=== PATIENT | female | born 1960 | race Caucasian/White ===

== ENCOUNTER 2018-11-28 15:26 | Emergency (ER) | payer OTHER ==
[~2018-11-28] VITALS: Ht 157.5 cm; Wt 54.4 kg
[~2018-11-28 15:26] MED LIST: CYMBALTA20 MG PO
[2018-11-28] MEDS ORDERED: SKELAXIN800 MG PO (18:23)
== END 2018-11-28 19:41 | disposition home or self-care (01) ==
LOC: ER 15:26
DX: M79.7 Fibromyalgia (principal); M25.552 Pain in left hip; M54.5 Low back pain

== ENCOUNTER 2019-10-08 12:20 | Emergency (ER) | payer OTHER ==
[~2019-10-08] VITALS: Ht 157.5 cm; Wt 51.7 kg
[~2019-10-08 12:20] MED LIST changes: +SKELAXIN800 MG PO
[2019-10-08] MEDS ORDERED: AMOX-CLAV 875-1 EACH PO (15:30)
== END 2019-10-08 15:51 | disposition home or self-care (01) ==
LOC: ER 12:20
DX: H66.93 Otitis media, unspecified, bilateral (principal); Z03.818 Encounter for observation for suspected exposure to other biological agents ruled out; R51 Headache; M54.2 Cervicalgia; F41.8 Other specified anxiety disorders

== ENCOUNTER 2024-08-13 17:52 | Emergency (ER) | payer OTHER ==
[~2024-08-13] VITALS: Ht 157.5 cm; Wt 49.9 kg
[~2024-08-13 17:52] MED LIST changes: +AMOX-CLAV 875-1 EACH PO
[2024-08-13] MEDS ORDERED: LORazepam 0.5 MG TABLET PO ONE (19:15)
[2024-08-13 19:23] LABS: HEMOGLOBIN 11.7 g/dL (12.0-15.00); MEAN CORPUSCULAR HEMOGLOBIN 30.3 pg (27.00-32.0); MEAN CORPUSCULAR HGB CONC 34.5 g/dl (32.0-36.0); PLATELET COUNT 293 K/uL (150-450); RED BLOOD COUNT 3.86 M/uL (4.00-6.00); RED CELL DISTRIBUTION WIDTH 13.3 % (11.5-14.5)
[2024-08-13] MEDS ORDERED: BUTALB-ACETAMI1 EAC2 PO (21:50)
== END 2024-08-13 21:45 | disposition home or self-care (01) ==
LOC: ER 17:54
PROVIDERS: General Practice
DX: R51.9 Headache, unspecified (principal); Z88.6 Allergy status to analgesic agent; M79.7 Fibromyalgia; E78.00 Pure hypercholesterolemia, unspecified; Z20.822 Contact with and (suspected) exposure to COVID-19